=== PATIENT | male | born 1985 | race African-American/Black ===

== ENCOUNTER 2023-06-17 10:20 | Emergency (ER) | payer MEDICAID ==
[~2023-06-17] VITALS: Ht 190.5 cm; Wt 113.4 kg
[~2023-06-17 10:20] MED LIST: KETOROLAC TROMETHAMINE 30 MG VIAL ONE
[2023-06-17 10:36] VITALS: BP_SYST 126; PULSE 70; TEMP 97.8; O2SAT 98
[2023-06-17] MEDS: KETOROLAC TROMETHAMINE 30 MG VIAL IM ONE (11:13)
[2023-06-17] MEDS ORDERED: IBUP-1969 PO (12:37)
[2023-06-17 13:15] VITALS: BP_SYST 121; PULSE 61; RESP 16; TEMP 97.2; O2SAT 97
== END 2023-06-17 10:35 | disposition home or self-care (01) ==
LOC: SED 10:20
DX: S93.401A Sprain of unspecified ligament of right ankle, initial encounter (principal); Z79.899 Other long term (current) drug therapy; V18.0XXA Pedal cycle driver injured in noncollision transport accident in nontraffic accident, initial encounter; Y93.89 Activity, other specified; Y92.89 Other specified places as the place of occurrence of the external cause; Y99.8 Other external cause status
CPT/HCPCS: 99284; 73610; 73620; 96372; J1885